=== PATIENT | male | born 1965 | race Hispanic/Latino ===

== ENCOUNTER 2017-11-18 09:16 | Day surgery (SDC) | payer MEDICARE ==
[~2017-11-18 09:16] MED LIST: NACL 0.9% 1000 ML 1,000 ML IV SCH
[2017-11-18] MEDS ORDERED: DIPRIVAN 10 MG/ML IV ONE (11:16)
[2017-11-18] MEDS ORDERED: XYLOCAINE 1% 20 mL ONE (11:17)
--- NOTE | 2017-11-18 11:38 | Short Stay Summary ---
Short Stay Documentation Date of service: 11/18/17 - History H&P: obtained from office - Allergies and Medications Current Medications: Allergies levofloxacin [From Levaquin] Allergy (Verified 10/27/14 12:10) CRAMPS morphine Allergy (Verified 10/27/14 12:10) Unknown Proton Pump Inhibitors Allergy (Verified 10/27/14 12:10) Rash Home Medications Medication Instructions Recorded Confirmed Last Taken Type Anastrozole (Nf) [Arimidex (Nf)] 1 mg PO DAILY 02/17/13 10/13/15 10/12/15 History Aspirin [Aspirin BABY CHEW TAB] 81 tab PO DAILY 02/17/13 12/14/14 10/06/15 History Atorvastatin [Lipitor] 1 tab PO DAILY 02/17/13 10/13/15 10/12/15 History Baclofen 20 mg PO TID 02/17/13 10/13/15 10/11/15 History Carisoprodol [Soma] 350 mg PO TID 02/17/13 10/13/15 10/12/15 History Fexofenadine HCl [Roberta] 60 mg PO BID 02/17/13 10/13/15 10/12/15 History Lisinopril [Zestril TAB] 10 mg PO DAILY 02/17/13 10/13/15 10/13/15 06:00 History Metoprolol [Lopressor TAB] 50 mg PO BID 02/17/13 10/13/15 10/13/15 06:00 History Montelukast [Singulair] 10 mg PO DAILY 02/17/13 10/13/15 10/12/15 History Potassium Chloride 20 meq PO BID 02/17/13 10/13/15 10/12/15 History Prasterone (Dhea) [Dhea] 50 mg PO BID 02/17/13 10/13/15 10/13/15 06:00 History Ranitidine HCl [Zantac] 150 tab PO BID 02/17/13 10/13/15 10/12/15 History Rasagiline Mesylate [Azilect] 1 mg PO QDAY 02/17/13 10/13/15 10/12/15 History clonazePAM [KlonoPIN] 0.5 mg PO PRN PRN 02/17/13 10/13/15 10/13/15 06:00 History diphenhydrAMINE [Benadryl CAP] 25 mg PO Q8HR PRN 02/17/13 10/13/15 10/12/15 History fentaNYL [Duragesic 50mcg] 50 mcg TD Q3D 02/17/13 10/13/15 10/12/15 History Baclofen 10 mg PO TID 11/03/13 10/13/15 10/13/15 History Oxycodone HCl [Roxicodone TAB] 1 tab PO PRN 11/03/13 10/13/15 10/12/15 History Ropinirole HCl [Requip Xl] 1 tab PO DAILY 11/03/13 10/13/15 10/12/15 History Hydrocortisone [Cortef TAB] 60 mg PO BID 11/04/13 10/13/15 10/13/15 06:00 History Active Medications Sodium Chloride (Nacl 0.9% 1000 Ml) 1,000 mls @ 50 mls/hr IV DIRECT SULMA Last Admin: 11/18/17 10:09 Dose: 50 mls/hr - Brief post op/procedure progress note Date of procedure: 11/18/17 Findings: see dictated report Estimated blood loss: minimal Pathology: list (Biopsies of prepyloric antral ulcer) Specimen disposition: to lab Condition: stable - Disposition Condition at discharge: Good Disposition: [id number] TO HOME OR SELFCARE - Discharge Diagnoses (1) Addisons disease Status: Acute (2) CAD (coronary artery disease) Status: Acute (3) Achalasia Status: Acute (4) Esophagitis, reflux Status: Acute (5) Gastric ulcer Status: Acute Comment: healed (6) History of hematemesis Status: Acute Short Stay Discharge Plan Activity: other (no driving for 24 hours) Weight Bearing Status: Weight Bear as Tolerated Follow up with: SARAH JACKSON MD [Other] - 7 Days
--- NOTE | 2017-11-18 11:42 | Operative Report ---
Operative Report Operative Report: Date of procedure: 11/18/2017 Procedure: Esophagogastroduodenoscopy with biopsies of prepyloric antral ulcer Preprocedure diagnosis: History or recent bleeding ulcer. History of severe esophagitis and history of achalasia. Post procedure diagnosis: Large prepyloric antral ulcer with indeterminant features for malignancy, mainly size. Severe distal esophagitis. Endoscopist: Dr. Kelly Anesthesia: Monitored anesthesia care per anesthesia department Medications: Propofol per anesthesia Estimated blood loss: 0 After careful discussion of the nature and purpose of the procedure as well as details the technique risks benefits and alternatives consent was obtained. The patient was placed in the left lateral decubitus position and medicated per anesthesia. The tip of the [employer] 570 video scope was passed per orum under direct vision into the esophagus and advanced into the stomach and descending duodenum. The descending duodenum the duodenal bulb and pylorus were symmetrical and normal. The scope was withdrawn into the stomach and the stomach then gently insufflated with air. The antrum reveals a 3-4 cm cratered ulcer in the prepyloric area extending to the pylorus. There was no visible vessel present in the ulcer although it was somewhat friable to brush with the scope. Multiple biopsies were taken carefully around the edge of the ulcer crater. The base of the ulcer and the margins were flat. The stomach was further insufflated and the scope was then retroflexed and partially withdrawn. The cardia, fundus, and body of the stomach were within normal limits and easily distensible.The scope was then withdrawn in the forward position. The esophagogastric junction was at 40 cm. The distal esophagus was severely ulcerated, LA class IV including the most distal 4 cm. No stricture was present. The proximal esophageal body was normal . The procedure was was well tolerated and the patient was observed in recovery. Impressions: Large ulcer in the prepyloric area extending to the pylorus. Probably benign but size features of concern. Severe distal esophagitis consistent with reflux, LA class IV. Plan: Await pathology. PPI therapy as tolerated and add sucralfate 1 g 4 times a day Electronically signed: Alex Kelly MD
--- NOTE | 2017-11-18 11:44 | Anesthesia Consultation ---
Anesthesia Consult and Med Hx Date of service: 11/18/17 - Airway Anesthetic Teeth Evaluation: Poor ROM Head & Neck: Inadequate Mental/Hyoid Distance: Adequate Mallampati Class: Class III Intubation Access Assessment: Possibly Difficult - Pulmonary Exam CTA: Yes - Cardiac Exam Cardiac Exam: RRR - Pre-Operative Health Status ASA Pre-Surgery Classification: ASA3 Proposed Anesthetic Plan: MAC - Pre-Anesthesia Comment Pre-Anesthesia Comments: Dysphagia, Achalasia, Addisons, Parkinsons PONV, Loop heart monitor, neuropathy extremities - Cardiovascular System Hx Hypertension: Yes Hx Coronary Artery Disease: Yes Hx Heart Attack/AMI: Yes Hx Percutaneous Transluminal Coronary Angioplasty (PTCA): Yes Hx Cardia Arrhythmia: Yes (A- FIB) Hx Heart Murmur: Yes - Gastrointestinal Hx Ulcer: Yes Hx Gastroesophageal Reflux Disease: Yes - Hematic Hx Anemia: Yes
--- NOTE | 2017-11-18 11:46 | Anesthesia Day of Surgery ---
Anesthesia Day of Surgery - Day of Surgery Patient Examined: Yes Patient H&P Reviewed: Yes Patient is NPO: Yes
[2017-11-18 12:08] VITALS: BP 131/80
== END 2017-11-18 09:17 | disposition home or self-care (01) ==
LOC: GIO 09:16
PROVIDERS: ATTEND Internal Medicine Gastroenterology
DX: K26.9 Duodenal ulcer, unspecified as acute or chronic, without hemorrhage or perforation (principal); K21.0 Gastro-esophageal reflux disease with esophagitis; K22.0 Achalasia of cardia; G20 Parkinson's disease; I10 Essential (primary) hypertension; I25.10 Atherosclerotic heart disease of native coronary artery without angina pectoris; I25.2 Old myocardial infarction; I48.91 Unspecified atrial fibrillation; Z98.61 Coronary angioplasty status; Z88.8 Allergy status to other drugs, medicaments and biological substances; Z88.1 Allergy status to other antibiotic agents; Z88.5 Allergy status to narcotic agent
CPT/HCPCS: 43239; 88305; 88342; J2704; J7030